=== PATIENT | female | born 1955 | race Caucasian/White ===

== ENCOUNTER 2020-09-26 08:08 | Day surgery (SDC) | payer MEDICARE ==
[2020-09-20 14:55] LABS: BASOPHILS # (AUTO) 0.1 X10'3 (0-0.2); BASOPHILS % (AUTO) 0.9 % (0-1); EOSINOPHILS # (AUTO) 0.1 X10'3 (0-0.9); EOSINOPHILS % (AUTO) 1.7 % (0-6); LYMPHOCYTES # (AUTO) 1.5 X10'3 (1.1-4.8); MEAN CORPUSCULAR HEMOGLOBIN 30.8 PG (27.0-31.0); MEAN CORPUSCULAR HGB CONC 33.6 g/dL (33.0-36.5); MEAN CORPUSCULAR VOLUME 91.8 FL (78-98); MEAN PLATELET VOLUME 7.1 FL (7.4-10.4); MONOCYTES # (AUTO) 0.4 X10'3 (0-0.9); MONOCYTES % (AUTO) 6.1 % (2-12); NEUTROPHILS # (AUTO) 4.5 X10'3 (1.8-7.7); NEUTROPHILS % (AUTO) 68.3 % (42-75); PRE OP HEMATOCRIT 41.9 % (35.0-45.0); PRE OP HEMOGLOBIN 14.1 g/dL (12.0-16.0); PRE OP PLATELET COUNT 381 X10'3 (140-440); RED BLOOD COUNT 4.56 X10'6 (4.20-5.60)
[2020-09-20 14:59] LABS: ALBUMIN 3.9 G/DL (3.4-5.0); ALBUMIN/GLOBULIN RATIO 1.3 (1.1-1.5); ALKALINE PHOSPHATASE 48 IU/L (46-116); BLOOD UREA NITROGEN 21 MG/DL (7-18); BUN/CREATININE RATIO 28.8 (6.6-38.0); CALCIUM 9.3 MG/DL (8.5-10.1); CHLORIDE 106 MMOL/L (99-107); CREATININE 0.73 MG/DL (0.40-0.90); PRE OP ALT 30 U/L (30-65); PRE OP ANION GAP 8 (8-16); PRE OP AST 19 U/L (10-37); PRE OP BILIRUB, TOTAL 0.3 MG/DL (0.0-1.0); PRE OP GLUCOSE 106 MG/DL (70-104); PRE OP SODIUM 142 MMOL/L (135-145); TOTAL CARBON DIOXIDE 28.5 MMOL/L (24-32); eGFR 80 ML/MIN
[2020-09-26] VITALS (7 sets, daily range): BP systolic 130–150; BP diastolic 71–83
[~2020-09-26] VITALS: Ht 157.5 cm; Wt 57.5 kg
[~2020-09-26 08:08] MED LIST: BUPIVAcaine/PF 2.5mg/ml (0.25%) 10ml vial ONE; LACT1CAP65 PO; OSC500T PO; ROSU10TA2 PO; UBID100C16 PO; VITAMIN D3 PO; ceFAZolin 2gm in dextrose, iso 50 ML IV ONE; famotidine 20mg tablet PO ONE; ringers solution, lacted 1,000 ML IV SCH
[2020-09-26] MEDS ORDERED: midazolam 2 mg/2 ml injection ONE ×2 (09:27→09:53)
[2020-09-26] MEDS ORDERED: fentaNYL/PF 50MCG/1 ML 2ML syringe ONE (09:27)
[2020-09-26] MEDS ORDERED: hydrALAZINE 20mg/ml inj. IV ONE (10:12)
[2020-09-26] MEDS ORDERED: propofol inj 20 ML IV ONE (10:12)
--- NOTE | 2020-09-26 10:15 | NUR ---
Received from OR via BED, accompanied by Anesthesiologist DR SKINNER and report given by Anesthesiolgist. PATIENT A&OX4, DENIES PAIN, V/S WNL, NEUROVASCULAR CHECKS INTACT, 20G PIV RUE, SCD ON, DRESSING TO LEFT WRIST CDI ELEVATED WITH ICEBAG APPLIED.
--- NOTE | 2020-09-26 10:55 | NUR ---
PATIENT A&OX4, DENIES PAIN, V/S WNL, NEUROVASCULAR CHECKS INTACT, 20G PIV RUE D/C, SCD OFF, DRESSING TO LEFT WRIST CDI ELEVATED WITH ICEBAG APPLIED. I HAVE REVIEWED D/C INSTRUCTIONS WITH PATIENT AND FAMILY AND THEY HAVE VERBALIZED UNDERSTANDING. PATIENT D/C HOME WITH ALL BELONGINGS AND FAMILY GAVE TRANSPORT HOME
== END 2020-09-26 10:55 | disposition home or self-care (01) ==
LOC: PAS 08:08
PROVIDERS: ATTEND Orthopaedic Surgery Hand Surgery
DX: M65.322 Trigger finger, left index finger (principal); M65.342 Trigger finger, left ring finger; Z20.828 Contact with and (suspected) exposure to other viral communicable diseases; Z79.82 Long term (current) use of aspirin; Z79.899 Other long term (current) drug therapy; Z88.0 Allergy status to penicillin; Z88.2 Allergy status to sulfonamides; Z88.8 Allergy status to other drugs, medicaments and biological substances; Z72.89 Other problems related to lifestyle; Z98.890 Other specified postprocedural states; Z90.710 Acquired absence of both cervix and uterus; Z80.9 Family history of malignant neoplasm, unspecified
CPT/HCPCS: 26055; 36415; 80053; 85025; 87635; 93005; A6222; J0360; J2250; J2704; J3010; J3490; A4215; A6449; J7120

== ENCOUNTER → 2021-09-05 | Outpatient (CLI) | payer SELFPAY ==
[~2021-09-05] MED LIST changes: -BUPIVAcaine/PF 2.5mg/ml (0.25%) 10ml vial ONE; +CYAN100087 PO; +PRIMROSE OIL PO; -ceFAZolin 2gm in dextrose, iso 50 ML IV ONE; -famotidine 20mg tablet PO ONE; -ringers solution, lacted 1,000 ML IV SCH
== END | disposition home or self-care (01) ==
LOC: HW VAS 11:12
DX: Z13.6 Encounter for screening for cardiovascular disorders (principal)

== ENCOUNTER 2021-09-11 07:13 | Day surgery (SDC) | payer MEDICARE ==
[2021-09-04 15:27] LABS: BASOPHILS # (AUTO) 0.1 X10'3 (0-0.2); BASOPHILS % (AUTO) 1.3 % (0-1); EOSINOPHILS # (AUTO) 0.2 X10'3 (0-0.9); EOSINOPHILS % (AUTO) 2.8 % (0-6); LYMPHOCYTES # (AUTO) 1.6 X10'3 (1.1-4.8); LYMPHOCYTES % (AUTO) 25.5 % (21-51); MEAN CORPUSCULAR HEMOGLOBIN 31.1 PG (27.0-31.0); MEAN CORPUSCULAR VOLUME 91.4 FL (78-98); MEAN PLATELET VOLUME 6.6 FL (7.4-10.4); MONOCYTES # (AUTO) 0.4 X10'3 (0-0.9); MONOCYTES % (AUTO) 6.5 % (2-12); NEUTROPHILS # (AUTO) 4.1 X10'3 (1.8-7.7); NEUTROPHILS % (AUTO) 63.9 % (42-75); PRE OP HEMATOCRIT 40.2 % (35.0-45.0); PRE OP HEMOGLOBIN 13.7 g/dL (12.0-16.0); PRE OP PLATELET COUNT 405 X10'3 (140-440)
[2021-09-04 15:41] LABS: ALBUMIN 3.9 G/DL (3.4-5.0); ALBUMIN/GLOBULIN RATIO 1.2 (1.1-1.5); ALKALINE PHOSPHATASE 53 IU/L (46-116); BLOOD UREA NITROGEN 19 MG/DL (7-18); BUN/CREATININE RATIO 22.6 (6.6-38.0); CALCIUM 8.6 MG/DL (8.5-10.1); CHLORIDE 106 MMOL/L (99-107); CREATININE 0.84 MG/DL (0.40-0.90); PRE OP ALT 45 U/L (30-65); PRE OP ANION GAP 9 (8-16); PRE OP AST 28 U/L (10-37); PRE OP BILIRUB, TOTAL 0.2 MG/DL (0.0-1.0); PRE OP GLUCOSE 99 MG/DL (70-104); PRE OP POTASSIUM 3.9 MMOL/L (3.4-5.1); PRE OP SODIUM 144 MMOL/L (135-145); TOTAL CARBON DIOXIDE 29.4 MMOL/L (24-32); TOTAL PROTEIN 7.1 G/DL (6.4-8.2); eGFR 68 ML/MIN
[~2021-09-11] VITALS: Ht 154.9 cm; Wt 54.9 kg
[~2021-09-11 07:13] MED LIST changes: +BUPIVAcaine 0.5% inj/PF 30 ML ONE; +clindamycin-Cleocin 900mg/D5W 50 ML IV ONE; +famotidine 20mg tablet PO ONE; +ringers solution, lacted 1,000 ML IV SCH
[2021-09-11 08:26] VITALS: BP 132/77
[2021-09-11] MEDS ORDERED: LIDOcaine 0.5% (5mg/ml) 50ml vial ONE (09:40)
[2021-09-11] MEDS ORDERED: fentaNYL/PF 50MCG/1 ML 2ML syringe ONE ×2 (10:14→10:16)
[2021-09-11] MEDS ORDERED: midazolam 1 mg/ML 2ml injection ONE (10:14)
[2021-09-11] MEDS ORDERED: ketamine 50mg/5ml syringe ONE (10:14)
[2021-09-11] MEDS ORDERED: propofol inj 20 ML IV ONE (10:30)
[2021-09-11 10:38] VITALS: BP 128/72
--- NOTE | 2021-09-11 10:38 | NUR ---
Received from OR via [facility], accompanied by Anesthesiologist DR. SKINNER and report given by Anesthesiolgist. 20G TO LEFT AC. RIGHT WRIST DRESSING CDI WITH ICE PLACED. DENIES PAIN. VSS. ROOM AIR. LR RUNNING AT 100ML/HR.
[2021-09-11 10:48] VITALS: BP 127/70
[2021-09-11 10:58] VITALS: BP 136/76
[2021-09-11 11:11] VITALS: BP 136/76
[2021-09-11] MEDS ORDERED: BUPIVAcaine 0.5% inj/PF 30 ml vial IJ ONE (11:34)
== END 2021-09-11 10:58 | disposition home or self-care (01) ==
LOC: PAS 07:13
PROVIDERS: ATTEND Orthopaedic Surgery Hand Surgery
DX: M65.341 Trigger finger, right ring finger (principal); G35 Multiple sclerosis; Z20.822 Contact with and (suspected) exposure to COVID-19; Z79.82 Long term (current) use of aspirin; Z79.899 Other long term (current) drug therapy; Z88.0 Allergy status to penicillin; Z88.8 Allergy status to other drugs, medicaments and biological substances; Z88.2 Allergy status to sulfonamides; Z98.890 Other specified postprocedural states; Z80.9 Family history of malignant neoplasm, unspecified
CPT/HCPCS: 26055; 36415; 80053; 82948; 85025; J2001; J2250; J2704; J3010; U0003; U0005; Z7506; Z7512; A4215; J7120